=== PATIENT | female | born 1980 | race Caucasian/White ===

== ENCOUNTER 2017-12-07 16:47 | Emergency (ER) | payer BC ==
--- NOTE | 2017-12-07 16:58 | UC ---
Back Pain HPI - HPI Summary HPI Summary: Pt presents with low back pain and left flank pain that began 2 days ago. She tells me that she fell 2 days ago and landed on her tailbone. She works as a nurse for an Orthopedic doctor and the Ortho provider ordered a sacrum XR which was negative per pt. She does have a history of kidney stones and is unsure if this feels the same. She has been drinking a lot of water and taking ibuprofen, but the pain has not changed. Pain is worse with movement/flexion. Denies fever , chills, abdominal pain, n/v/d/c, dysuria, hematuria, numbness, tingling, or loss of bowel/bladder control. - History of Current Complaint Stated Complaint: BACK PAIN Time Seen by Provider: 12/07/17 16:58 Hx Obtained From: Patient Onset/Duration: Gradual Onset Timing: Constant Severity Initially: Moderate Severity Currently: Moderate Pain Intensity: 6 Pain Scale Used: 0-10 Numeric Character: Sharp, Aching, Spasmodic Aggravating Factor(s): Movement Alleviating Factor(s): Rest, Position - Allergies/Home Medications Allergies/Adverse Reactions: Allergies Allergy/AdvReac Type Severity Reaction Status Date / Time latex Allergy Rash Verified 12/07/17 17:01 PMH/Surg Hx/FS Hx/Imm Hx Previously Healthy: Yes GI/ History: Kidney Stones - Family History Known Family History: Positive: None - Social History Occupation: Employed Full-time Lives: With Family Alcohol Use: Occasionally Substance Use Type: None Smoking Status (MU): Never Smoked Tobacco Review of Systems Constitutional: Negative Skin: Negative Respiratory: Negative Cardiovascular: Negative Gastrointestinal: Negative Genitourinary: Negative Neurovascular: Negative Musculoskeletal: Other: - Low back pain. Left flank pain Neurological: Negative Psychological: Negative All Other Systems Reviewed And Are Negative: Yes Physical Exam - Summary Physical Exam Summary: GENERAL: NAD. WDWN. No pain distress. SKIN: No rashes, sores, ulcers, masses, lesions. NECK: Supple. FROM. Nontender. No lymphadenopathy. CHEST: CTAB. No r/r/w. No accessory muscle use. Breathing comfortably and in no distress. CV: RRR. Without m/r/g. Pulses intact. Brisk cap refill. MSK: TTP over lumbar paraspinal muscles. Pain with flexion and extension of spine. Positive left CVA tenderness. Negative SLR and TOYA. Strength 5/5 B/L LEs including dorsiflexion and plantar flexion. FROM B/L LEs. No edema. NEURO: Alert. CN II-XII grossly intact. Sensations intact B/L LEs L3-S1. PSYCH: Age appropriate behavior. Triage Information Reviewed: Yes Back Pain Course/Dx - Course Course Of Treatment: CT: IMPRESSION: No evidence of obstructive uropathy is noted. No hernias are noted. The. bladder is otherwise unremarkable. UA: Negative. Suspect muscle strain possibly due to recent fall. Advised rest, heat , ibuprofen prn, and will add flexeril prn. - Differential Dx/Diagnosis Provider Diagnoses: Low back strain Discharge - Discharge Plan Condition: Stable Disposition: HOME Prescriptions: Cyclobenzaprine TAB* [Flexeril 10 MG TAB*] 10 mg PO TID PRN #15 tab PRN Reason: Pain Patient Education Materials: Low Back Strain (ED), Lower Back Exercises (ED) Referrals: No Primary Care Phys,NOPCP [Primary Care Provider] - Additional Instructions: If you develop a fever, shortness of breath, chest pain, new or worsening symptoms - please call your PCP or go to the ED. Your blood pressure was high at todays visit. Please see your primary provider within 4 weeks for recheck and re-evaluation. 1) May continue to take ibuprofen 600-800mg every 6-8hrs as needed for pain
[2017-12-07 17:07] VITALS: BP 150/83
--- NOTE | 2017-12-07 17:56 | RAD ---
Indication: Left flank pain. CT of the abdomen and pelvis was performed without oral or IV contrast demonstration. Coronal and sagittal reconstructed images were obtained. The lung bases demonstrate no pleural fluid, nodules or masses. Heart demonstrates no pericardial effusion. Liver is normal in size. No focal lesions or intrahepatic duct dilatation is noted. The gallbladder demonstrates no calcified gallstones. No pericholecystic fluid or wall thickening is identified. The pancreas demonstrates no mass or pancreatic duct dilatation. The spleen is normal in size. No adrenal lesions are noted. The kidneys demonstrates no hydronephrosis. Small bowel demonstrates no abnormal dilatation. CT of the pelvis demonstrates normal appearing appendix. No dilated loops of bowel are noted. No pelvic adenopathy is noted. The uterus and ovaries are unremarkable. The urinary bladder is otherwise unremarkable. IMPRESSION: No evidence of obstructive uropathy is noted. No hernias are noted. The bladder is otherwise unremarkable.
== END 2017-12-07 18:06 | disposition home or self-care (01) ==
LOC: UCEAST 16:47
DX: S39.012A Strain of muscle, fascia and tendon of lower back, initial encounter (principal); W19.XXXA Unspecified fall, initial encounter; Y93.9 Activity, unspecified; Y92.9 Unspecified place or not applicable; Z91.040 Latex allergy status; Z87.442 Personal history of urinary calculi
CPT/HCPCS: 74176; 81003; 99212; G0463